=== PATIENT | female | born 1985 | race Caucasian/White ===

== ENCOUNTER 2019-01-26 13:56 | Emergency (ER) | payer SELFPAY ==
[2019-01-26] MEDS ORDERED: METOCLOPRAMIDE 10 MG/2mL INJ ONE (15:54)
[2019-01-26] MEDS ORDERED: DIPHENHYDRAMINE 50 MG/ML VIAL ONE (15:54)
[2019-01-26] MEDS ORDERED: NA CHLORIDE 0.9% 1,000 ML ONE (15:54)
[2019-01-26 16:21] LABS: Absolute Lymphocytes (CBC) 2.5 K/uL (0.7-4.9); Basophils % 0.4 % (0-1.3); Hematocrit 38.2 % (36.0-45.0); Lymphocytes % 28.2 % (15.3-44.8); MPV 9.5 fL (7.6-11.3); RBC Red Blood Cell Count 4.27 M/uL (3.86-4.86)
--- NOTE | 2019-01-26 16:42 | RAD REPORT ---
EXAM DESCRIPTION: CT - Head Brain Wo Cont - 01/26/2019 4:18 pm CLINICAL HISTORY: Head pain, head pressure, blurred vision COMPARISON: None. TECHNIQUE: Axial 5 mm thick images of the head were obtained without IV contrast. All CT scans are performed using dose optimization technique as appropriate and may include automated exposure control or mA/KV adjustment according to patient size. FINDINGS: No intracranial hemorrhage, mass, edema or shift of mid-line structures. No acute infarcti on changes seen. No abnormal extra-axial fluid collections. Ventricles are normal. Mastoid air cells and visualized portions of the paranasal sinuses are clear. No acute bony findings. IMPRESSION: Negative non-contrast CT head examination.
[2019-01-26 16:55] LABS: ALT/SGPT 13 U/L (12-78); AST/SGOT 11 U/L (15-37); Albumin 3.8 g/dL (3.4-5.0); Alkaline Phosphatase 55 U/L (45-117); BUN Blood Urea Nitrogen 14 mg/dL (7-18); Bicarbonate 27 mmol/L (21-32); Bilirubin Total 0.3 mg/dL (0.2-1.0); Glucose Level 85 mg/dL (74-106); Protein, Total 7.1 g/dL (6.4-8.2); Sodium Level 142 mmol/L (136-145)
[2019-01-26 17:07] LABS: Urine Blood TRACE (NEG); Urine Glucose NEGATIVE (NEG); Urine Protein NEGATIVE (NEG); Urine Specific Gravity 1.025 (1.005-1.030)
--- NOTE | 2019-01-26 17:40 | EDPHYS ---
Physician Documentation [facility] Name: Nancy Malhotra Age: 33 yrs Sex: Female : 1985 Arrival Date: 01/26/2019 Time: 13:58 Bed 28 Private MD: ED Physician Avelino Solorio HPI: 01/26 16:15 This 33 yrs old Female presents to ER via Ambulatory with complaints of jmm Headache, Blurred Vision. 16:15 Onset: The symptoms/episode began/occurred gradually, 2 day(s) ago. Associated signs jmm and symptoms: Pertinent positives: vomiting. Headache History: The patient has had previous headaches. The patient has experienced similar episodes in the past. This is a 33 year old female with a history of chronic headaches that presents to the ED with complaints of headache which alternates sides with multiple episodes of vomiting. Headache worse yesterday than today. Denies fever, denies neck stiffness. . 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 - Social history:: Smoking status: Patient uses tobacco products, smokes one pack cigarettes per day. - Ebola Screening: : Patient denies travel to an Ebola-affected area in the 21 days before illness onset. ROS: 16:15 Constitutional: Negative for fever, chills, and weight loss, Cardiovascular: Negative jmm for chest pain, palpitations, and edema, Respiratory: Negative for shortness of breath, cough, wheezing, and pleuritic chest pain. 16:15 Abdomen/GI: Positive for vomiting. 16:15 Neuro: Positive for headache. 16:15 All other systems are negative. Exam: 16:15 Constitutional: This is a well developed, well nourished patient who is awake, alert, jmm and in no acute distress. Head/Face: atraumatic. Eyes: EOMI, no conjunctival erythema appreciated ENT: Moist Mucus Membranes Neck: Trachea midline, Supple Chest/axilla: Normal chest wall appearance and motion. Cardiovascular: Regular rate and rhythm. No edema appreciated Respiratory: Normal respirations, no respiratory distress appreciated Abdomen/GI: Non distended, soft Back: Normal ROM Skin: General appearance color normal MS/ Extremity: Moves all extremities, no obvious deformities appreciated, no edema noted to the lower extremities Neuro: Awake and alert, normal gait Vital Signs: 14:38 BP 138 / 80; Pulse 84; Resp 18; Temp 98.5; Pulse Ox 100% on R/A; Height 5 ft. 3 in. aj1 (160.02 cm) (R); 15:31 BP 120 / 67; Pulse 61; Resp 18; Pulse Ox 100% on R/A; mg2 18:03 BP 121 / 78; Pulse 62; Resp 18; Temp 98.5; Pulse Ox 100% on R/A; Pain 0/10; mg2 MDM: 15:50 Patient medically screened. [facility] 17:36 Data reviewed: vital signs, nurses notes. Counseling: I had a detailed discussion with charles the patient and/or guardian regarding: the historical points, exam findings, and any diagnostic results supporting the discharge/admit diagnosis, lab results, radiology results, the need for outpatient follow up, to return to the emergency department if symptoms worsen or persist or if there are any questions or concerns that arise at home. ED course: Patient is alert and non toxic in appearance in the ED. GU resolved. Neck is supple, patient is afebrile. I do not suspect meningitis. GU gradual onset, I do not suspect SAH. Patient is advised to follow up with neuro and otherwise given strict return precautions. Patient understood and agrees with the plan of care. . 01/26 15:52 Order name: CBC with Diff; Complete Time: 16:26 [facility] 01/26 15:52 Order name: CMP; Complete Time: 17:06 [facility] 01/26 15:52 Order name: CT Head Brain wo Cont; Complete Time: 16:45 [facility] 01/26 16:35 Order name: Urine Dipstick--Ancillary (enter results); Complete Time: 17:11 gm 01/26 16:35 Order name: Urine --Ancillary (enter results); Complete Time: 17:11 gm 01/26 15:52 Order name: Urine Dipstick-Ancillary (obtain specimen); Complete Time: 16:16 [facility] 01/26 15:52 Order name: Urine Test (obtain specimen); Complete Time: 16:16 [facility] Administered Medications: 16:05 Drug: NS 0.9% 1000 ml Route: IV; Rate: 1 bolus; Site: right antecubital; mg2 17:46 Follow up: Response: No adverse reaction; IV Status: Completed infusion mg2 16:05 Drug: Reglan 10 mg Route: IVP; Site: right antecubital; mg2 17:45 Follow up: Response: No adverse reaction; Marked relief of symptoms mg2 16:05 Drug: diphenhydrAMINE 12.5 mg Route: IVP; Site: right antecubital; mg2 17:45 Follow up: Response: No adverse reaction; Marked relief of symptoms mg2 Disposition: 18:34 Co-signature as Attending Physician, Avelino Solorio MD. Chart complete. rn Disposition: 01/26/19 17:40 Discharged to Home. Impression: Headache. - Condition is Stable. - Discharge Instructions: General Headache Without Cause. - Medication Reconciliation Form, Thank You Letter, Antibiotic Education, Prescription Opioid Use, Work release form form. - Follow up: Felipe Aggarwal MD; When: 2 - 3 days; Reason: Recheck today's complaints, Continuance of care, Re-evaluation by your physician. Signatures: Dispatcher [employer] EDNneka Downey RN RN aj1 Valdez Monte PA PA [facility] Avelino Solorio MD MD rn Gardose, Michele, RN RN mg2 Corrections: (The following items were deleted from the chart) 18:03 17:40 01/26/2019 17:40 Discharged to Home. Impression: Headache. Condition is Stable. mg2 Forms are Medication Reconciliation Form, Thank You Letter, Antibiotic Education, Prescription Opioid Use. Follow up: Felipe Aggarwal; When: 2 - 3 days; Reason: Recheck today's complaints, Continuance of care, Re-evaluation by your physician. [facility]
--- NOTE | 2019-01-26 17:40 | ER ---
Nurse's Notes [facility] Name: Nancy Malhotra Age: 33 yrs Sex: Female : 1985 Arrival Date: 01/26/2019 Time: 13:58 Bed 28 Private MD: Diagnosis: Headache Presentation: 01/26 14:36 Presenting complaint: Patient states: "Since yesterday it feels like my head has a aj1 rubber-band around it. Sometimes it makes my vision blurry, and I'm just light-headed" Denies any recent head injury. Transition of care: patient was not received from another setting of care. Onset of symptoms was January 25, 2019. Risk Assessment: Do you want to hurt yourself or someone else? Patient reports no desire to harm self or others. Initial Sepsis Screen: Does the patient meet any 2 criteria? No. Patient's initial sepsis screen is negative. Does the patient have a suspected source of infection? No. Patient's initial sepsis screen is negative. Care prior to arrival: None. 14:36 Method Of Arrival: Ambulatory [facility] 14:36 Acuity: MORIS 4 aj1 Triage Assessment: 14:38 Headache History: Denies prior headaches. General: Appears in no apparent distress. aj1 comfortable, Behavior is calm, cooperative, appropriate for age. Pain: Complains of pain in forehead, right bahai, left bahai, left temporal area, left occipital area, right temporal area and right occipital area Pain currently is 3 out of 10 on a pain scale. Quality of pain is described as pressure, Pain began 1 day ago. Also complains of nausea, blurred vision that comes and goes. Neuro: Level of Consciousness is awake, alert, obeys commands, Oriented to person, place, time, situation, Moves all extremities. Full function Gait is steady, Speech is normal, Facial symmetry appears normal, Reports headache. Cardiovascular: Patient's skin is warm and dry. Respiratory: Airway is patent Respiratory effort is even, unlabored, Respiratory pattern is regular, symmetrical. 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 - Social history:: Smoking status: Patient uses tobacco products, smokes one pack cigarettes per day. - Ebola Screening: : Patient denies travel to an Ebola-affected area in the 21 days before illness onset. Screenin:31 Abuse screen: Denies threats or abuse. Denies injuries from another. Nutritional mg2 screening: No deficits noted. Tuberculosis screening: No symptoms or risk factors identified. Fall Risk None identified. Assessment: 15:28 General: Appears in no apparent distress. comfortable, Behavior is calm, cooperative. mg2 Pain: Complains of pain in head Pain does not radiate. Pain currently is 6 out of 10 on a pain scale. Quality of pain is described as aching, Pain began gradually. Neuro: Level of Consciousness is awake, alert, obeys commands, Oriented to person, place, time, situation, Reports headache. Neuro: Reports blurred vision. Cardiovascular: Capillary refill < 3 seconds Patient's skin is warm and dry. Respiratory: Airway is patent Respiratory effort is even, unlabored, Respiratory pattern is regular, symmetrical. GI: No signs and/or symptoms were reported involving the gastrointestinal system. GI: Reports vomiting. : No signs and/or symptoms were reported regarding the genitourinary system. EENT: No signs and/or symptoms were reported regarding the EENT system. Derm: Skin is intact, is healthy with good turgor, Skin is pink, warm \\T\\ dry. normal. Musculoskeletal: Circulation, motion, and sensation intact. Capillary refill < 3 seconds. 16:16 Reassessment: patient sent to ct scan via wheelchair. mg2 18:03 Reassessment: Patient appears in no apparent distress at this time. Patient is alert, mg2 oriented x 3, equal unlabored respirations, skin warm/dry/pink. Patient denies pain at this time. Patient states feeling better. 18:14 Reassessment: Patient appears in no apparent distress at this time. Patient states mg2 feeling better. Vital Signs: 14:38 BP 138 / 80; Pulse 84; Resp 18; Temp 98.5; Pulse Ox 100% on R/A; Height 5 ft. 3 in. aj1 (160.02 cm) (R); 15:31 BP 120 / 67; Pulse 61; Resp 18; Pulse Ox 100% on R/A; mg2 18:03 BP 121 / 78; Pulse 62; Resp 18; Temp 98.5; Pulse Ox 100% on R/A; Pain 0/10; mg2 ED Course: 13:58 Patient arrived in ED. as 14:37 Triage completed. aj1 14:38 Arm band placed on Patient placed in waiting room, Patient notified of wait time. aj1 15:09 Elfego Maya RN is Primary Nurse. mg2 15:21 Valdez Monte PA is PHCP. jmm 15:21 Avelino Solorio MD is Attending Physician. jmm 15:31 Patient has correct armband on for positive identification. Pulse ox on. NIBP on. mg2 15:31 No provider procedures requiring assistance completed. mg2 16:05 Inserted saline lock: 20 gauge in right antecubital area, using aseptic technique. mg2 Blood collected. 16:18 CT Head Brain wo Cont In Process Unspecified. EDMS 16:18 CT completed. Patient tolerated procedure well. Patient moved back from CT. mw3 17:40 Felipe Aggarwal MD is Referral Physician. m 18:03 IV discontinued, intact, bleeding controlled, No redness/swelling at site. Pressure mg2 dressing applied. Administered Medications: 16:05 Drug: NS 0.9% 1000 ml Route: IV; Rate: 1 bolus; Site: right antecubital; mg2 17:46 Follow up: Response: No adverse reaction; IV Status: Completed infusion mg2 16:05 Drug: Reglan 10 mg Route: IVP; Site: right antecubital; mg2 17:45 Follow up: Response: No adverse reaction; Marked relief of symptoms mg2 16:05 Drug: diphenhydrAMINE 12.5 mg Route: IVP; Site: right antecubital; mg2 17:45 Follow up: Response: No adverse reaction; Marked relief of symptoms mg2 Outcome: 17:40 Discharge ordered by . [facility] 18:03 Discharged to home ambulatory. mg2 18:03 Condition: good 18:03 Discharge instructions given to patient, Instructed on discharge instructions, follow up and referral plans. Demonstrated understanding of instructions, follow-up care. 18:03 Patient left the ED. mg2 Signatures: Dispatcher [employer] EDMS Nneka Felton RN RN aj1 Valdez Monte PA PA jmNubia Solomon as Elfego Maya, RN RN mg2 Betsy Summers mw3 Corrections: (The following items were deleted from the chart) 18:15 18:14 BP 109 / 71; Pulse 65bpm; Resp 18bpm; Pulse Ox 100% RA; Temp 98.2F; Pain 0/10; mg2mg2
[2019-01-26 18:42] VITALS: TEMP 98.5; O2SAT 100
[2019-01-26 18:44] VITALS: BP 121/78
== END 2019-01-26 18:03 | disposition home or self-care (01) ==
LOC: ER 13:56
DX: R51 Headache (principal)
CPT/HCPCS: 36415; 70450; 80053; 81003; 81025; 85025; 96361; 96374; 96375; 99284; J1200; J2765; J7030

== ENCOUNTER 2022-01-10 14:21 | Emergency (ER) | payer OTHER, SELFPAY ==
--- OUTSIDE RECORDS SUMMARY | 2022-01-10 14:24 | XMS REPORT | Continuity of Care Document ---
:1985 Author Organization [facility] t Address [address] [place] [address] [address]. [address] [place] [address] Care Team Providers Name Role Phone LELO HELMS Attending Clinician Unavailable Tessa Weinstein MD Attending Clinician TESSA WEINSTEIN Attending Clinician Unavailable Doctor Unassigned, [place] Attending Clinician Unavailable Lelo Helms PA-C Attending Clinician 2, [facility] Attending Clinician Unavailable Payers Payer Name Policy Type Policy Number Effective Date Expiration Date S ource Problems Condition Condition Condition Status Onset Resolution Last Treating Co mments Source Name Details Category Date Date Treatment Clinician Date Obesity Obesity Disease Active Univers (BMI (BMI 7-07 ity of 30-39.9) 30-39.9) 00:00: [place] 00 [facility] No known No known Disease Unive rs active active ity of problems problems [facility] Allergies, Adverse Reactions, Alerts Allergy Allergy Status Severity Reaction(s) Onset Inactive Treating Comm ents Source Name Type Date Date Clinician NO KNOWN Drug Active Univers ALLERGIE Class ity of S [facility] Social History Social Habit Start Date Stop Date Quantity Comments Source Exposure to Not sure [facility] SARS-CoV-2 (event) [facility] Tobacco use and 2020-11-24 2020-11-24 Never used Universit y of exposure 00:00:00 00:00:00 [facility] Alcohol intake 2020-11-24 2020-11-24 Lifetime University of 00:00:00 00:00:00 non-drinker [facility] (finding) Branch Cigarettes smoked 2020-11-24 2020-11-24 Univers ity of current (pack per 00:00:00 00:00:00 ) - Reported Branch Tobacco Comment 2020-10-13 2020-10-13 1 PPD Universit y of 00:00:00 00:00:00 [facility] Sex Ass[birth year] At [birth year] Universit y of 00:00:00 00:00:00 [facility] Smoking Status Start Date Stop Date Source Unknown if ever smoked [facility] Current every day smoker 2020-11-24 00:00:00 Uni versity of [facility] Medications Ordered Filled Start Stop Current Ordering Indication Dosage Frequency Signature Comments Components Source Medication Medication Date Date Medication? Clinician (SIG) Name Name levonorgest Yes 1{devic 1 Device Univers reL 8-04 e} by ity of (MIRENA) 20 16:32: Intrauteri [place] mcg/24 34 ne route Medical hours (6 once now. Branch yrs) 52 mg IUD levonorgest Yes 1{devic 1 Device Univers reL 8-04 e} by ity of (MIRENA) 20 16:32: Intrauteri [place] mcg/24 34 ne route Medical hours (6 once now. Branch yrs) 52 mg IUD levonorgest 2020- No [id number] 1{devic Univers reL 7 07-07 e} ity of (MIRENA) 17:45: 16:38 [place] IUD 1 00 :00 [employer] Branch levonorgest 2020- No [id number] 1{devic 1 Device, Univers reL 7 07-07 e} Intrauteri ity of (MIRENA) 17:45: 16:38 ne, ONCE, Alex as IUD 1 00 :00 1 dose, [employer] Sun10/27/20 Branch at 1245, Routine levonorgest 2020- No [id number] 1{devic Univers reL 707 07-07 e} ity of (MIRENA) 17:45: 16:38 [place] IUD 1 00 :00 [employer] Branch levonorgest 2020- No [id number] 1{devic 1 Device, Univers reL 7 07-07 e} Intrauteri ity of (MIRENA) 17:45: 16:38 ne, ONCE, Alex as IUD 1 00 :00 1 dose, [employer] Sun10/27/20 Branch at 1245, Routine miSOPROStoL Yes [id number] Take one Univers 200 mcg 6-23 tablet ity of tablet 00:00: night [place] 00 before Medical procedure, Branch then take one tablet morning of procedure miSOPROStoL 2020-0 Yes [id number] Take one Univers 200 mcg 6-23 tablet ity of tablet 00:00: night [place] 00 before Medical procedure, Branch then take one tablet morning of procedure miSOPROStoL 2020-0 Yes [id number] Take one Univers 200 mcg 6-23 tablet ity of tablet 00:00: night [place] 00 before Medical procedure, Branch then take one tablet morning of procedure miSOPROStoL 2020-0 2021- No [id number] Take one Univers 200 mcg 6-23 07-07 tablet ity of tablet 00:00: 00:00 night [place] 00 :00 before Medical procedure, Branch then take one tablet morning of procedure miSOPROStoL 2020-0 2020- No [id number] Take one Univers 200 mcg 6-23 07-07 tablet ity of tablet 00:00: 00:00 night [place] 00 :00 before Medical procedure, Branch then take one tablet morning of procedure ferrous 2020-0 Yes Take by Univers sulfate 6-08 mouth. ity of (IRON ORAL) 19:47: [address] ferrous 2020-0 Yes Take by Univers sulfate 6-08 mouth. ity of (IRON ORAL) 19:47: [address] ferrous 2020-0 Yes Take by Univers sulfate 6-08 mouth. ity of (IRON ORAL) 19:47: [address] ferrous 2020-0 Yes Take by Univers sulfate 6-08 mouth. ity of (IRON ORAL) 19:47: [address] ferrous 2020-0 Yes Take by Univers sulfate 6-08 mouth. ity of (IRON ORAL) 19:47: [address] ferrous 2020-0 Yes Take by Univers sulfate 6-08 mouth. ity of (IRON ORAL) 19:47: [address] ferrous 2020-0 Yes Take by Univers sulfate 6-08 mouth. ity of (IRON ORAL) 19:47: [address] ferrous 2020-0 Yes Take by Univers sulfate 6-08 mouth. ity of (IRON ORAL) 19:47: [address] ferrous 2020-0 Yes Take by Univers sulfate 6-08 mouth. ity of (IRON ORAL) 19:47: [place] 48 Medical Branch ferrous 2021-0 Yes Take by Univers sulfate 6-08 mouth. ity of (IRON ORAL) 19:47: [place] [address] Medical Branch ferrous 2021-0 Yes Take by Univers sulfate 6-08 mouth. ity of (IRON ORAL) 19:47: [place] [address] Medical Branch ferrous 2021-0 Yes Take by Univers sulfate 6-08 mouth. ity of (IRON ORAL) 19:47: [place] [address] Medical Branch metFORMIN 202-0 Yes [id number] 500mg Take 1 U nivers 500 mg 6-08 tablet by ity of tablet 00:00: mouth [place] (two) Medical times Branch daily with meals. metFORMIN 2020-0 Yes [id number] 500mg Take 1 U nivers 500 mg 6-08 tablet by ity of tablet 00:00: mouth [place] (two) Medical times Branch daily with meals. metFORMIN 2020-0 Yes [id number] 500mg Take 1 U nivers 500 mg 6-08 tablet by ity of tablet 00:00: mouth [place] (two) Medical times Branch daily with meals. metFORMIN 2020-0 Yes [id number] 500mg Take 1 U nivers 500 mg 6-08 tablet by ity of tablet 00:00: mouth [place] (two) Medical times Branch daily with meals. metFORMIN 2020-0 Yes [id number] 500mg Take 1 U nivers 500 mg 6-08 tablet by ity of tablet 00:00: mouth [place] (two) Medical times Branch daily with meals. metFORMIN 2020-0 Yes [id number] 500mg Take 1 U nivers 500 mg 6-08 tablet by ity of tablet 00:00: mouth [place] (two) Medical times Branch daily with meals. metFORMIN 2020-0 Yes [id number] 500mg Take 1 U nivers 500 mg 6-08 tablet by ity of tablet 00:00: mouth [place] (two) Medical times Branch daily with meals. metFORMIN 202-0 Yes [id number] 500mg Take 1 U nivers 500 mg 6-08 tablet by ity of tablet 00:00: mouth [place] (two) Medical times Branch daily with meals. metFORMIN 1-0 Yes [id number] 500mg Take 1 U nivers 500 mg 6-08 tablet by ity of tablet 00:00: mouth [place] (two) Medical times Branch daily with meals. metFORMIN Yes [id number] 500mg Take 1 U nivers 500 mg 6-08 tablet by ity of tablet 00:00: mouth 2 [place] 00 (two) Medical times Branch daily with meals. metFORMIN 0 Yes [id number] 500mg Take 1 U nivers 500 mg 6-08 tablet by ity of tablet 00:00: mouth 2 [place] 00 (two) Medical times Branch daily with meals. metFORMIN 0 Yes [id number] 500mg Take 1 U nivers 500 mg 6-08 tablet by ity of tablet 00:00: mouth 2 [place] 00 (two) Medical times Branch daily with meals. Vital Signs Vital Name Observation Time Observation Value Comments Source Systolic blood 2020-11-24 16:30:00 123 mm[Hg] Univer sity of [facility] Diastolic blood 2020-11-24 16:30:00 79 mm[Hg] [facility] Heart rate 2020-11-24 16:30:00 79 /min [facility] Body temperature 2020-11-24 16:30:00 36.83 Mariela [facility] Respiratory rate 2020-11-24 16:30:00 16 /min [facility] Body height 2020-11-24 16:30:00 160 cm [facility] Body weight 2020-11-24 16:30:00 77.474 kg [facility] BMI 2020-11-24 16:30:00 30.26 kg/m2 [facility] Systolic blood 2020-10-27 15:18:00 127 mm[Hg] Univer sity of [facility] Diastolic blood 2020-10-27 15:18:00 79 mm[Hg] [facility] Heart rate 2020-10-27 15:18:00 63 /min [facility] Body temperature 2020-10-27 15:18:00 36.72 Mariela [facility] Respiratory rate 2020-10-27 15:18:00 18 /min [facility] Body height 2020-10-27 15:18:00 160 cm [facility] Body weight 2020-10-27 15:18:00 77.111 kg Universi ty of [place] [facility] BMI 2020-10-27 15:18:00 30.11 kg/m2 Universi ty of [place] [facility] Systolic blood 2020-10-13 15:02:00 128 mm[Hg] Univer sity of pressure [place] [facility] Diastolic blood 2020-10-13 15:02:00 80 mm[Hg] Unive rsity of pressure [facility] Heart rate 2020-10-13 15:02:00 85 /min Universi ty of [facility] Body temperature 2020-10-13 15:02:00 37.06 Mariela Univ ersity of [facility] Branch Respiratory rate 2020-10-13 15:02:00 18 /min Univ ersity of [facility] Branch Body height 2020-10-13 15:02:00 160 cm Universi ty of [place] [facility] [place] Body weight 2020-10-13 15:02:00 76.658 kg Universi ty of [facility] Branch BMI 2020-10-13 15:02:00 29.94 kg/m2 Universi ty of [place] [facility] Systolic blood 2020-09-28 19:46:00 111 mm[Hg] Univer sity of pressure [facility] Branch Diastolic blood 2020-09-28 19:46:00 79 mm[Hg] Unive rsity of pressure [facility] Branch Heart rate 2020-09-28 19:46:00 77 /min Universi ty of [place] [facility] [place] Body temperature 2020-09-28 19:46:00 36.89 Mariela Univ ersity of [facility] Branch Respiratory rate 2020-09-28 19:46:00 18 /min Univ ersity of [place] [facility] Body height 2020-09-28 19:46:00 160 cm Universi ty [facility] [place] [facility] Body weight 2020-09-28 19:46:00 76.658 kg Universi ty of [place] [facility] BMI 2020-09-28 19:46:00 29.94 kg/m2 [facility]i ty [facility] [place] [facility] Procedures Procedure Date / Time Performed Performing Clinician [facility] 2020-10-27 05:01:00 Doctor Unassigned, No Univer [facility] ULTRASOUND Name [facility] POCT TEST 2020-10-27 00:00:00 Tessa Weinstein Universi ty of [facility] ASSIGNMENT OF BENEFITS 2020-09-28 19:12:27 Doctor Unassigned, No [facility] POCT TEST 2020-09-28 00:00:00 Lelo Helms ty of [facility] Encounters Start End Encounter Admission Attending Care Care Encounter Source Date/Time Date/Time Type Type Clinicians Facility Department ID 2021-10-17 2021-10-17 Outpatient R ANALIA [facility] [id number] Univers 08:00:00 08:00:00 LELO [id number] [facility] [place] 2020-12-29 2020-12-29 Outpatient R ANALIA [facility] [id number] Univers 13:00:00 13:00:00 LELO [id number] [facility] [place] 2020-11-24 2020-11-24 Office Surya [facility] [id number] Univers 11:00:44 11:44:47 Visit Harley Yao [id number] i ty [id number] [phone] Ri [address] 2020-11-24 2020-11-24 Outpatient Jenaro WEINSTEIN [facility] [id number] Univers 11:00:00 11:00:00 [id number] [facility] [place] 2020-11-24 2020-11-24 Outpatient Jenaro WEINSTEIN T[facility] [id number] Univers 11:00:00 11:00:00 [facility] [place] 2020-10-27 2020-10-27 Office Surya [facility] [id number] Univers 10:05:10 11:26:32 Visit Harley Yao [id number] i ty [id number] [phone] Ri dic[address] 2020-10-27 2020-10-27 Outpatient Jenaro WEINSTEIN [facility] [id number] Univers 10:00:00 10:00:00 [id number] [facility] [place] 2020-10-27 2020-10-27 Outpatient Jenaro WEINSTEIN [facility] [id number] Univers 10:00:00 10:00:00 ity of [facility] 2020-10-27 2020-10-27 Orders Doctor JOSSIE [id number] Univers 00:00:00 00:00:00 Only Unassigned, MARIBELL [id number] ity of [place] [facility] [id number] Alex as [phone] [address] 2020-10-13 2020-10-13 Office Analia [facility] [id number] Univers 09:33:14 11:00:48 Visit Lelo Yao [id number] i [id number] [phone] [facility] 134 [facility] 2020-10-13 2020-10-13 [facility] [id number] Univers 09:45:00 09:45:00 LELO [id number] ity [facility] 2020-10-13 2020-10-13 Outpatient R ANALIA [facility] [id number] Univers 09:45:00 09:45:00 LELO [facility] [place] 2020-10-07 2020-10-07 Telephone Analia [facility] [id number] Univers 00:00:00 00:00:00 Lelo Yao [id number] [id number] [phone] Ri dical [facility] 134 [facility] 2020-09-28 2020-09-28 Bear Keeper 2, Adc Lab [facility] [id number] Univers 15:33:19 15:48:19 Visit Lelo Helms [id number] ity [id number] [phone] Ri dical nal 353 [facility] 2020-09-28 2020-09-28 Outpatient R [facility] [id number] Univers 15:45:00 15:45:00 [id number] [facility] 2020-09-28 2020-09-28 [facility] [id number] Univers 14:17:04 15:22:17 Visit Lelo Yao [id number] i ty [id number] [phone] Ri dical [address] 2020-09-28 2020-09-28 [facility] [id number] [facility] 14:30:00 14:30:00 LELO [facility] [place] 2020-09-28 2020-09-28 Orders Doctor JOSSIE [id number] Univers 00:00:00 00:00:00 Only Unassigned, MARIBELL [id number] ity of [place] [facility] [id number] Alex as [phone] [address] Results Test Description Test Time Test Comments Results Result Comments Source POCT TEST 2020-10-27 15:56:00 Test Item Value Reference Range Interpretation Comme nts POCT PREG (test code = 1605) Negative On board controls acceptable with C Line (test code = 3574) Yes POCT PREG LOT # (test code = 3575) POCT PREG TEST DATE (test code = 3576[id number] 15:56:00 Test Item Value Reference Range Interpretation Comments POCT PREG (test code = 1605) Negative On board controls acceptable with C Yes Line (test code = 3574) POCT PREG LOT # (test code = 3575) POCT PREG TEST DATE (test code = 3576) [id number] 20:04:00 Test Item Value Reference Range Interpretation Comments POCT PREG (test code = 1605) Negative On board controls acceptable with C Yes Line (test code = 3574) POCT PREG LOT # (test code = 3575) POCT PREG TEST DATE (test code = 3576) [facility] [id number] 20:04:00 Test Item Value Reference Range Interpretation Comments POCT PREG (test code = 1605) Negative On board controls acceptable with C Yes Line (test code = 3574) POCT PREG LOT # (test code = 3575) POCT PREG TEST DATE (test code = 3576) [facility]
--- NOTE | 2022-01-10 17:00 | ER ---
Nurse's Notes [facility] Name: Nancy Malhotra Age: 36 yrs Sex: Female : 1985 Arrival Date: 01/10/2022 Time: 14:22 Bed Waiting Private MD: Diagnosis: Presentation: 01/10 14:35 Chief complaint: Patient states: feels like my right arm is asleep but no pins and jh5 needles, I can't feel my finger tips. Started 3 weeks ago, has not seen a provider at all for it. "Numbness comes and goes, and then I get a sharp pain down my arm". Coronavirus screen: Vaccine status: Patient reports receiving the 2nd dose of the covid vaccine. Client denies travel out of the [place] in the last 14 days. Ebola Screen: Patient negative for fever greater than or equal to 101.5 degrees Fahrenheit, and additional compatible Ebola Virus Disease symptoms Patient denies exposure to infectious person. Patient denies travel to an Ebola-affected area in the 21 days before illness onset. Initial Sepsis Screen: Does the patient meet any 2 criteria? No. Patient's initial sepsis screen is negative. Does the patient have a suspected source of infection? No. Patient's initial sepsis screen is negative. Risk Assessment: Do you want to hurt yourself or someone else? Patient reports no desire to harm self or others. Onset of symptoms was September 2021. 14:35 Method Of Arrival: Ambulatory [facility] 14:35 Acuity: MORIS 3 jh5 Triage Assessment: 14:38 General: Appears in no apparent distress. well groomed, well developed, well nourished, [facility] Behavior is calm, cooperative, appropriate for age. Pain: Denies pain. 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 - Social history:: Smoking status: Patient reports the use of cigarette tobacco products, smokes one pack cigarettes per day. Assessment: 16:30 Reassessment: Called to exam room, no answer. Unable to locate patient. 16:40 Reassessment: Called patient from lobby to exam room. No answer. Unable to locate ss patient. 16:58 Reassessment: Called patient again from ER lobby. No answer. Unable to locate patient. Vital Signs: 14:35 BP 130 / 84; Pulse 77; Resp 18; Temp 98.6; Pulse Ox 100% ; Weight 77.11 kg; Height 5 5 ft. 3 in. (160.02 cm); Pain 0/10; 14:35 Body Mass Index 30.11 (77.11 kg, 160.02 cm) 5 ED Course: 14:22 Patient arrived in ED. am2 14:38 Triage completed. [facility] 14:38 Arm band placed on right wrist. [facility] 16:51 Em Lyman MD is Attending Physician. sd2 Administered Medications: No medications were administered Outcome: 17:00 Eloped from waiting room. 17:00 unknown 17:00 Patient left the ED. Signatures: Yulisa Bright RN RN Rosalee Sexton am2 Celine Wilkinson RN RN [facility] Em Lyman MD MD sd2
[2022-01-11 19:35] VITALS: BP 130/84; TEMP 98.6; O2SAT 100
== END 2022-01-10 17:00 | disposition left against medical advice (07) ==
LOC: ER 14:21
DX: Z02.9 Encounter for administrative examinations, unspecified (principal)
CPT/HCPCS: 99281

== ENCOUNTER 2022-03-30 08:50 | Emergency (ER) | payer SELFPAY ==
--- OUTSIDE RECORDS SUMMARY | 2022-03-30 08:56 | XMS REPORT | Continuity of Care Document ---
:1985 Author Organization [facility] t Address [address] [place] [address] [address] [place] [address] Care Team Providers Name Role Phone Tessa Weinstein MD Attending Clinician TESSA WEINSTEIN Attending Clinician Unavailable Doctor Unassigned, [place] Attending Clinician Unavailable Lelo Helms PA-C Attending Clinician LELO HELMS Attending Clinician Unavailable 2, [facility] Attending Clinician Unavailable Payers Payer Name Policy Type Policy Number Effective Date Expiration Date S ource Problems Condition Condition Condition Status Onset Resolution Last Treating Co mments Source Name Details Category Date Date Treatment Clinician Date Obesity Obesity Disease Active Univers (BMI (BMI 7-07 ity of 30-39.9) 30-39.9) 00:00: [place] 00 [facility] No known No known Disease Unive rs active active ity of problems problems [facility] Allergies, Adverse Reactions, Alerts Allergy Allergy Status Severity Reaction(s) Onset Inactive Treating Comm ents Source Name Type Date Date Clinician NO KNOWN Drug Active Univers ALLERGIE Class ity of S [facility] Social History Social Habit Start Date Stop Date Quantity Comments Source Exposure to Not sure [facility] SARS-CoV-2 (event) [facility] Tobacco use and 2020-11-24 2020-11-24 Never used Universit y of exposure 00:00:00 00:00:00 [facility] Alcohol intake 2020-11-24 2020-11-24 Lifetime University of 00:00:00 00:00:00 non-drinker [facility] [place] (finding) Branch Cigarettes smoked 2020-11-24 2020-11-24 Univers ity of current (pack per 00:00:00 00:00:00 ) - Reported Branch Tobacco Comment 2020-10-13 2020-10-13 1 PPD Universit y of 00:00:00 00:00:00 [facility] Sex Ass[birth year] At [birth year] Universit y of 00:00:00 00:00:00 [facility] Smoking Status Start Date Stop Date Source Unknown if ever smoked [facility] Current every day smoker 2020-11-24 00:00:00 Uni versity of [facility] Medications Ordered Filled Start Stop Current Ordering [...] yrs) 52 mg IUD levonorgest 2020- No [id number] 1{devic Univers reL 7 07-07 e} ity of (MIRENA) 17:45: 16:38 [place] IUD 1 00 :00 [employer] Branch levonorgest 2020- No [id number] 1{devic 1 Device, Univers reL 7 07-07 e} Intrauteri ity of (MIRENA) 17:45: 16:38 ne, ONCE, Alex as IUD 1 00 :00 1 dose, [employer] Tender Sun10/27/20 Branch at 1245, Routine levonorgest 2020- No [id number] 1{devic Univers reL 707 07-07 e} ity of (MIRENA) 17:45: 16:38 [place] IUD 1 00 :00 [employer] Branch levonorgest 2020- No [id number] 1{devic 1 Device, Univers reL 7 07-07 e} Intrauteri ity of (MIRENA) 17:45: 16:38 ne, ONCE, Alex as IUD 1 00 :00 1 dose, Novel[employer] Tender Sun10/27/20 Branch at 1245, Routine miSOPROStoL Yes [id number] Take one Univers 200 mcg 6-23 tablet ity of tablet 00:00: night [place] 00 before Medical procedure, Branch then take one tablet morning of procedure miSOPROStoL 2020-0 Yes [id number] Take one Univers 200 mcg 6-23 tablet ity of tablet 00:00: night [place] 00 before Medical procedure, Branch then take one tablet morning of procedure miSOPROStoL 2020-0 Yes [id number] Take one Univers 200 mcg 6-23 tablet ity of tablet 00:00: night [place] 00 before Medical procedure, Branch then take one tablet morning of procedure miSOPROStoL 2020-0 2021- No [id number] Take one Univers 200 mcg 6-23 07-07 tablet ity of tablet 00:00: 00:00 night [place] 00 :00 before Medical procedure, Branch then take one tablet morning of procedure miSOPROStoL 2020-0 2020- No [id number] Take one Univers 200 mcg 6-23 07-07 tablet ity of tablet 00:00: 00:00 night [place] 00 :00 before Medical procedure, Branch then take one tablet morning of procedure ferrous 2020-0 Yes Take by Univers sulfate 6-08 mouth. ity of (IRON ORAL) 19:47: [address] ferrous 2020-0 Yes Take by Univers sulfate 6-08 mouth. ity of (IRON ORAL) 19:47: [address] ferrous 2020-0 Yes Take by Univers sulfate 6-08 mouth. ity of (IRON ORAL) 19:47: [address] ferrous 2020-0 Yes Take by Univers sulfate 6-08 mouth. ity of (IRON ORAL) 19:47: [address] ferrous 2020-0 Yes Take by Univers sulfate 6-08 mouth. ity of (IRON ORAL) 19:47: [address] ferrous 2020-0 Yes Take by Univers sulfate 6-08 mouth. ity of (IRON ORAL) 19:47: [address] ferrous 2020-0 Yes Take by Univers sulfate 6-08 mouth. ity of (IRON ORAL) 19:47: [address] ferrous 2020-0 Yes Take by Univers sulfate 6-08 mouth. ity of (IRON ORAL) 19:47: [address] ferrous 2020-0 Yes Take by Univers sulfate 6-08 mouth. ity of (IRON ORAL) 19:47: [place] 48 [facility] ferrous 2021-0 Yes Take by Univers sulfate 6-08 mouth. ity of (IRON ORAL) 19:47: [place] [address] Medical Branch ferrous 2021-0 Yes Take by Univers sulfate 6-08 mouth. ity of (IRON ORAL) 19:47: [place] [address] Medical Branch ferrous 2021-0 Yes Take by Univers sulfate 6-08 mouth. ity of (IRON ORAL) 19:47: [place] [address] Medical Branch metFORMIN 202-0 Yes [id number] 500mg Take 1 U nivers 500 mg 6-08 tablet by ity of tablet 00:00: mouth [place] (two) Medical times Branch daily with meals. metFORMIN 2020-0 Yes [id number] 500mg Take 1 U nivers 500 mg 6-08 tablet by ity of tablet 00:00: mouth [place] (two) Medical times Branch daily with meals. metFORMIN 2020-0 Yes [id number] 500mg Take 1 U nivers 500 mg 6-08 tablet by ity of tablet 00:00: mouth [place] (two) Medical times Branch daily with meals. metFORMIN 2020-0 Yes [id number] 500mg Take 1 U nivers 500 mg 6-08 tablet by ity of tablet 00:00: mouth [place] (two) Medical times Branch daily with meals. metFORMIN 2020-0 Yes [id number] 500mg Take 1 U nivers 500 mg 6-08 tablet by ity of tablet 00:00: mouth [place] (two) Medical times Branch daily with meals. metFORMIN 2020-0 Yes [id number] 500mg Take 1 U nivers 500 mg 6-08 tablet by ity of tablet 00:00: mouth [place] (two) Medical times Branch daily with meals. metFORMIN 2020-0 Yes [id number] 500mg Take 1 U nivers 500 mg 6-08 tablet by ity of tablet 00:00: mouth [place] (two) Medical times Branch daily with meals. metFORMIN 202-0 Yes [id number] 500mg Take 1 U nivers 500 mg 6-08 tablet by ity of tablet 00:00: mouth [place] (two) Medical times Branch daily with meals. metFORMIN 1-0 Yes [id number] 500mg Take 1 U nivers 500 mg 6-08 tablet by ity of tablet 00:00: mouth [place] (two) Medical times Branch daily with meals. metFORMIN Yes [id number] 500mg Take 1 U nivers 500 mg 6-08 tablet by ity of tablet 00:00: mouth 2 [place] 00 (two) Medical times Branch daily with meals. metFORMIN 0 Yes [id number] 500mg Take 1 U nivers 500 mg 6-08 tablet by ity of tablet 00:00: mouth 2 [place] 00 (two) Medical times Branch daily with meals. metFORMIN 0 Yes [id number] 500mg Take 1 U nivers 500 mg 6-08 tablet by ity of tablet 00:00: mouth 2 [place] 00 (two) Medical times Branch daily with meals. Vital Signs Vital Name Observation Time Observation Value Comments Source Systolic blood 2020-11-24 16:30:00 123 mm[Hg] Univer sity of [facility] Diastolic blood 2020-11-24 16:30:00 79 mm[Hg] [facility] Heart rate 2020-11-24 16:30:00 79 /min [facility] Body temperature 2020-11-24 16:30:00 36.83 Mariela [facility] Respiratory rate 2020-11-24 16:30:00 16 /min [facility] Body height 2020-11-24 16:30:[address] [facility] Body weight 2020-11-24 16:30:[address] [facility] BMI 2020-11-24 16:30:00 30.26 kg/m2 [facility] Systolic blood 2020-10-27 15:18:00 127 mm[Hg] Univer sity of [facility] Diastolic blood 2020-10-27 15:18:00 79 mm[Hg] [facility] Heart rate 2020-10-27 15:18:00 63 /min [facility] Body temperature 2020-10-27 15:18:00 36.72 Mariela [facility] Respiratory rate 2020-10-27 15:18:00 18 /min [facility] Body height 2020-10-27 15:18:[address] [facility] Body weight 2020-10-27 15:18:00 77.111 kg Universi ty of [place] [facility] BMI 2020-10-27 15:18:00 30.11 kg/m2 Universi ty of [place] [facility] Systolic blood 2020-10-13 15:02:00 128 mm[Hg] Univer sity of pressure [place] [facility] Diastolic blood 2020-10-13 15:02:00 80 mm[Hg] Unive rsity of pressure [facility] [place] [facility] Heart rate 2020-10-13 15:02:00 85 /min Universi ty of [facility] [place] [facility] Body temperature 2020-10-13 15:02:00 37.06 Mariela Univ ersity of [facility] [place] [facility] Respiratory rate 2020-10-13 15:02:00 18 /min Univ ersity of [facility] [place] [facility] Body height 2020-10-13 15:02:00 160 cm [facility]i ty [facility] [place] [facility] [place] Body weight 2020-10-13 15:02:00 76.658 kg Universi ty of [facility] [place] [facility] BMI 2020-10-13 15:02:00 29.94 kg/m2 Universi ty of [place] [facility] Systolic blood 2020-09-28 19:46:00 111 mm[Hg] Univer sity of pressure [facility] [place] [facility] Diastolic blood 2020-09-28 19:46:00 79 mm[Hg] Unive rsity of pressure [facility] [place] [facility] Heart rate 2020-09-28 19:46:00 77 /min Universi ty [facility] [place] [facility] [place] Body temperature 2020-09-28 19:46:00 36.89 Mariela Univ ersity of [facility] [place] [facility] Respiratory rate 2020-09-28 19:46:00 18 /min Univ ersity of [place] [facility] Body height 2020-09-28 19:46:00 160 cm Universi ty [facility] [place] [facility] Body weight 2020-09-28 19:46:00 76.658 kg [facility]i ty [facility] [place] [facility] BMI 2020-09-28 19:46:00 29.94 kg/m2 [facility] [place] [facility] Procedures Procedure Date / Time Performed Performing Clinician [facility] e [facility] 2020-10-27 05:01:00 Doctor Unassigned, No Univer [facility] ULTRASOUND Name [facility] POCT TEST 2020-10-27 00:00:00 Tessa Weinstein Universi ty of [facility] ASSIGNMENT OF BENEFITS 2020-09-28 19:12:27 Doctor Poojassigned, No [facility] POCT TEST 2020-09-28 00:00:00 Lelo Helms ty of [facility] Encounters Start End Encounter Admission Attending Care Care Encounter Source Date/Time Date/Time Type Type Clinicians Facility Department ID 2020-11-24 2020-11-24 Office Tessa Weinstein [facility] [id number] Univers 11:00:44 11:44:47 Visit Harley Yao [id number] [id number] [phone] [place] dical [place]al [address] [place] [address] 2020-11-24 2020-11-24 Outpatient TESSA AVELAR [facility] [id number] Univers 11:00:00 11:00:00 ity of [facility] 2020-10-27 2020-10-27 Office Tessa Weinstein [facility] [id number] Univers 10:05:10 11:26:32 Visit Harley Yao [id number] [id number] [phone] [place] dical [place]al [address] [place] [address] 2020-10-27 2020-10-27 Outpatient R TESSA WEINSTEIN [facility] [id number] Univers 10:00:00 10:00:00 ity of [facility] 2020-10-27 2020-10-27 Orders Doctor SETHI [id number] Univers 00:00:00 00:00:00 Only Unassigned, MARIBELL [id number] [facility] [id number] Alex as [phone] [address] 2020-10-13 2020-10-13 Office Analia DEASHLEY [id number] Univers 09:33:14 11:00:48 Visit Lelo Yao [id number] [id number] [phone] [place] dical [place]al [address] [place] [address] 2020-10-13 2020-10-13 Outpatient R ANALIA [facility] [id number] Univers 09:45:00 09:45:00 LELO elena [facility] 2020-10-07 2020-10-07 Telephone Analia [facility] [id number] [facility] 00:00:00 00:00:00 Lelo Yao [id number] [id number] [phone] [facility] 134 [facility] 2020-09-28 2020-09-28 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, [facility] [id number] Univers 15:33:19 15:48:19 Visit Lelo Helms [id number] [id number] [phone] [facility] 353 [facility] 2020-09-28 2020-09-28 Office Analia [facility] [id number] [facility] 14:17:04 15:22:17 Visit Lelo Yao [id number] [id number] [phone] [address] 2020-09-28 2020-09-28 Outpatient R ANALIA [facility] [id number] Univers 14:30:00 14:30:00 LEOL parker [facility] 2020-09-28 2020-09-28 Orders Doctor JOSSIE [id number] [place] [address] 00:00:00 00:00:00 Only Unassigned, MARIBELL [id number] ity of [place] [facility] [id number] Alex as [phone] [address] Results Test Description Test Time Test Comments Results Result Comments Source POCT TEST 2020-10-27 15:56:00 Test Item Value Reference Range Interpretation Comme nts POCT PREG (test code = 1605) Negative On board controls acceptable with C Line (test code = 3574) Yes POCT PREG LOT # (test code = 3575) POCT PREG TEST DATE (test code = 3576) [id number] 15:56:00 Test Item Value Reference Range Interpretation Comments POCT PREG (test code = 1605) Negative On board controls acceptable with C Yes Line (test code = 3574) POCT PREG LOT # (test code = 3575) POCT PREG TEST DATE (test code = 3576) [id number] 20:04:00 Test Item Value Reference Range Interpretation Comments POCT PREG (test code = 1605) Negative On board controls acceptable with C Yes Line (test code = 3574) POCT PREG LOT # (test code = 3575) POCT PREG TEST DATE (test code = 3576) [facility] [id number] 20:04:00 Test Item Value Reference Range Interpretation Comments POCT PREG (test code = 1605) Negative On board controls acceptable with C Yes Line (test code = 3574) POCT PREG LOT # (test code = 3575) POCT PREG TEST DATE (test code = 3576) [facility]
--- NOTE | 2022-03-30 10:17 | EDPHYS ---
Physician Documentation [facility] Name: Nancy Malhotra Age: 36 yrs Sex: Female : 1985 Arrival Date: 03/30/2022 Time: 08:54 Bed 9 Private MD: ED Physician Avelino Solorio HPI: 03/30 10:15 This 36 yrs old Female presents to ER via Ambulatory with complaints of Headache, Sore snw Throat. 10:15 The patient or guardian reports flu symptoms, low-grade fever, myalgias, no appetite. snw Onset: The symptoms/episode began/occurred suddenly, 1 day(s) ago, and became persistent. Associated signs and symptoms: Pertinent positives: sore throat. Severity of symptoms: At their worst the symptoms were moderate. It is unknown whether or not the patient has had similar symptoms in the past. The patient has not recently seen a physician. 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 - Social history:: Smoking status: Patient reports the use of cigarette tobacco products, smokes one pack cigarettes per day. ROS: 10:11 Constitutional: Negative for fever, chills, and weight loss, Eyes: Negative for injury, snw pain, redness, and discharge, ENT: Negative for injury and discharge, congestion, pain Neck: Negative for injury, pain, and swelling, Cardiovascular: Negative for chest pain, palpitations, and edema, Respiratory: Negative for shortness of breath, cough, wheezing, and pleuritic chest pain, Abdomen/GI: Negative for abdominal pain, nausea, vomiting, diarrhea, and constipation, Back: Negative for injury and pain, : Negative for injury, bleeding, discharge, and swelling, MS/Extremity: Negative for injury and deformity, Skin: Negative for injury, rash, and discoloration. 10:11 Neuro: Positive for headache. Exam: 10:10 Head/Face: Normocephalic, atraumatic. Eyes: Pupils equal round and reactive to light, snw extra-ocular motions intact. Lids and lashes normal. Conjunctiva and sclera are non-icteric and not injected. Cornea within normal limits. Periorbital areas with no swelling, redness, or edema. Neck: Trachea midline, no thyromegaly or masses palpated, and no cervical lymphadenopathy. Supple, full range of motion without nuchal rigidity, or vertebral point tenderness. No Meningismus. 10:10 Chest/axilla: Normal chest wall appearance and motion. Nontender with no deformity. No lesions are appreciated. Cardiovascular: Regular rate and rhythm with a normal S1 and S2. No gallops, murmurs, or rubs. Normal PMI, no JVD. No pulse deficits. Respiratory: Lungs have equal breath sounds bilaterally, clear to auscultation and percussion. No rales, rhonchi or wheezes noted. No increased work of breathing, no retractions or nasal flaring. Abdomen/GI: Soft, non-tender, with normal bowel sounds. No distension or tympany. No guarding or rebound. No evidence of tenderness throughout. Back: No spinal tenderness. No costovertebral tenderness. Full range of motion. Skin: Warm, dry with normal turgor. Normal color with no rashes, no lesions, and no evidence of cellulitis. MS/ Extremity: Pulses equal, no cyanosis. Neurovascular intact. Full, normal range of motion. Neuro: Awake and alert, GCS 15, oriented to person, place, time, and situation. Cranial nerves II-XII grossly intact. Motor strength 5/5 in all extremities. Sensory grossly intact. Cerebellar exam normal. Normal gait. Psych: Awake, alert, with orientation to person, place and time. Behavior, mood, and affect are within normal limits. 10:10 Constitutional: The patient appears alert, awake, anxious, restless. 10:10 ENT: TM's: are normal, Nose: is normal, Mouth: is normal, Posterior pharynx: is normal, Voice: is normal. Vital Signs: 09:19 BP 135 / 89; Pulse 85; Resp 18; Temp 97.8; Pulse Ox 100% ; Weight 79.38 kg; Height 5 ap3 ft. 3 in. (160.02 cm); 09:19 Body Mass Index 31.00 (79.38 kg, 160.02 cm) ap3 MDM: 09:04 Patient medically screened. snw 10:18 Data reviewed: vital signs, nurses notes. Data interpreted: Pulse oximetry: on room air snw is 100 %. Interpretation: normal. Counseling: I had a detailed discussion with the patient and/or guardian regarding: the historical points, exam findings, and any diagnostic results supporting the discharge/admit diagnosis, lab results, the need for outpatient follow up, to return to the emergency department if symptoms worsen or persist or if there are any questions or concerns that arise at home. Special discussion: Based on the history and exam findings, there is no indication for further emergent testing or inpatient evaluation. I discussed with the patient/guardian the need to see the primary care provider for further evaluation of the symptoms. 03/30 09:26 Order name: Flu; Complete Time: 10:16 snw Administered Medications: No medications were administered Disposition: 13:28 Co-signature as Attending Physician, Avelino Solorio MD. rn Disposition Summary: 03/30/22 10:17 Discharge Ordered Location: Home snw Condition: Stable snw Diagnosis - Influenza due to other identified influenza virus with gastrointestinal snw manifestations Followup: snw - With: Emergency Department - When: As needed - Reason: Worsening of condition Followup: snw - With: Private Physician - When: 5 - 6 days - Reason: Recheck today's complaints, Continuance of care, Re-evaluation by your physician Discharge Instructions: - Discharge Summary Sheet snw - Influenza, Adult snw Forms: - Medication Reconciliation Form snw - Work release form snw - Thank You Letter snw - Antibiotic Education snw - Prescription Opioid Use snw Prescriptions: - promethazine 25 mg Oral Tablet - take 1 tablet by ORAL route every 6 hours As needed; 20 tablet; Refills: 0, snw Product Selection Permitted Signatures: Dispatcher [employer] EDViktoria Griffin FNP-C CTE TEACHER-Csnw Avelino Solorio MD MD rn Prokisch, Amanda, RN RN ap3
--- NOTE | 2022-03-30 10:17 | ER ---
Nurse's Notes [facility] Name: Nancy Malhotra Age: 36 yrs Sex: Female : 1985 Arrival Date: 03/30/2022 Time: 08:54 Bed 9 Private MD: Diagnosis: Influenza due to other identified influenza virus with gastrointestinal manifestations Presentation: 03/30 09:19 Chief complaint: Patient states: she started having headache, sore throat, congestion ap3 yesterday. patient states her employer tested her for COVID this morning and she was negative. Coronavirus screen: Client presents with at least one sign or symptom that may indicate coronavirus-19. Ebola Screen: No symptoms or risks identified at this time. Initial Sepsis Screen: Does the patient meet any 2 criteria? No. Patient's initial sepsis screen is negative. Does the patient have a suspected source of infection? No. Patient's initial sepsis screen is negative. Risk Assessment: Do you want to hurt yourself or someone else? Patient reports no desire to harm self or others. Onset of symptoms was March 29, 2022. 09:19 Method Of Arrival: Ambulatory ap3 09:19 Acuity: MORIS 4 ap3 Triage Assessment: 09:21 Headache History: The patient has had previous headaches and this one is similar to ap3 previous episodes. General: Appears ill, Behavior is calm, cooperative, appropriate for age. Pain: Complains of pain in throat Pain currently is 3 out of 10 on a pain scale. Pain began gradually, 1 day ago. Also complains of cough congestion. EENT: Reports pain when swallowing. Neuro: Level of Consciousness is awake, alert, obeys commands, Oriented to person, place, time, situation. 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 - Social history:: Smoking status: Patient reports the use of cigarette tobacco products, smokes one pack cigarettes per day. Screenin:22 Abuse screen: Denies threats or abuse. Nutritional screening: No deficits noted. ap3 Tuberculosis screening: No symptoms or risk factors identified. 09:22 Fall Risk None identified. ap3 Vital Signs: 09:19 BP 135 / 89; Pulse 85; Resp 18; Temp 97.8; Pulse Ox 100% ; Weight 79.38 kg; Height 5 ap3 ft. 3 in. (160.02 cm); 09:19 Body Mass Index 31.00 (79.38 kg, 160.02 cm) ap3 ED Course: 08:54 Patient arrived in ED. rg4 08:56 Viktoria Encarnacion FNP-C [facility]. snw 08:56 Avelino Solorio MD is Attending Physician. snw 09:21 Triage completed. ap3 09:22 Patient has correct armband on for positive identification. Bed in low position. Call ap3 light in reach. Pulse ox on. NIBP on. 09:22 Arm band placed on right wrist. ap3 Administered Medications: No medications were administered Outcome: 10:17 Discharge ordered by . snw 10:45 Patient left the ED. ap3 Signatures: Viktoria Encarnacion FNP-C FNP-Maribell Espinoza rg4 Rosalee Martinez, RN RN ap3
[2022-03-30 11:54] VITALS: BP 135/89; TEMP 97.8; O2SAT 100
== END 2022-03-30 10:45 | disposition home or self-care (01) ==
LOC: ER 08:50
DX: J10.2 Influenza due to other identified influenza virus with gastrointestinal manifestations (principal); Z20.822 Contact with and (suspected) exposure to COVID-19; F17.210 Nicotine dependence, cigarettes, uncomplicated
CPT/HCPCS: 87804; 99282

== ENCOUNTER 2022-12-15 19:22 | Emergency (ER) | payer SELFPAY ==
--- OUTSIDE RECORDS SUMMARY | 2022-12-15 19:25 | XMS REPORT | Continuity of Care Document ---
:1985 Author Organization [facility] t Address [address] [place] [address] [place] [id number] Care Team Providers Name Role Phone Tessa Weinstein MD Attending Clinician TESSA WEINSTEIN Attending Clinician Unavailable Doctor Unassigned, [place] Attending Clinician Unavailable Lelo Helms PA-C Attending [...] (BMI 7-07 ity of 30-39.9) 30-39.9) 00:00: [place] 00 [facility] No known No known Disease Unive rs active active ity of problems problems [facility] Allergies, Adverse Reactions, Alerts Allergy Allergy Status Severity Reaction(s) Onset Inactive Treating Comm ents Source Name Type Date Date Clinician NO KNOWN Drug Active Univers ALLERGIE Class ity of S [facility] Social History Social Habit Start Date Stop Date Quantity Comments Source Exposure to Not sure [facility] SARS-CoV-2 (event) [facility] Tobacco use and 2020-11-24 2020-11-24 Never used Universit y of exposure 00:00:00 00:00:00 [facility] Alcohol intake 2020-11-24 2020-11-24 Lifetime University of 00:00:00 00:00:00 non-drinker [facility] (finding) Branch Cigarettes smoked 2020-11-24 2020-11-24 Univers ity of current (pack per 00:00:00 00:00:00 ) - Reported Branch Tobacco Comment 2020-10-13 2020-10-13 1 PPD Universit y of 00:00:00 00:00:00 [facility] Sex Ass[birth year] At [birth year] Universit y of 00:00:00 00:00:00 [facility] Smoking Status Start Date Stop Date Source Unknown if ever smoked General acute hospital Current every day smoker 2020-11-24 00:00:00 Uni versity of [facility] Medications Ordered Filled Start Stop Current Ordering [...] yrs) 52 mg IUD levonorgest 2020- No [id number] 1{devic Univers reL 7 07-07 e} ity of (MIRENA) 17:45: 16:38 [place] IUD 1 00 :00 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 Branch levonorgest 2020- No [id number] 1{devic 1 Device, Univers reL 7 07-07 e} Intrauteri ity of (MIRENA) 17:45: 16:38 ne, ONCE, Alex as IUD 1 00 :00 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, 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 Branch at 1245, Routine levonorgest 2020- No [id number] 1{devic Univers reL 707 07-07 e} ity of (MIRENA) 17:45: 16:38 [place] IUD 1 00 :00 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 Branch levonorgest 2020- No [id number] 1{devic 1 Device, Univers reL 7 07-07 e} Intrauteri ity of (MIRENA) 17:45: 16:38 ne, ONCE, Alex as IUD 1 00 :00 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, 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 Branch at 1245, Routine miSOPROStoL Yes [id number] Take one Univers 200 mcg 6-23 tablet ity of tablet 00:00: night [place] 00 before Medical procedure, Branch then take one tablet morning of procedure miSOPROStoL 2020-0 Yes [id number] Take one Univers 200 mcg 6-23 tablet ity of tablet 00:00: night [place] 00 before Medical procedure, Branch then take one tablet morning of procedure miSOPROStoL 2020-0 Yes [id number] Take one Univers 200 mcg 6-23 tablet ity of tablet 00:00: night [place] 00 before Medical procedure, Branch then take one tablet morning of procedure miSOPROStoL 2020-0 2021- No [id number] Take one Univers 200 mcg 6-23 07-07 tablet ity of tablet 00:00: 00:00 night [place] 00 :00 before Medical procedure, Branch then take one tablet morning of procedure miSOPROStoL 2020-0 2020- No [id number] Take one Univers 200 mcg 6-23 07-07 tablet ity of tablet 00:00: 00:00 night [place] 00 :00 before Medical procedure, Branch then take one tablet morning of procedure ferrous 2020-0 Yes Take by Univers sulfate 6-08 mouth. ity of (IRON ORAL) 19:47: [address] ferrous 2020-0 Yes Take by Univers sulfate 6-08 mouth. ity of (IRON ORAL) 19:47: [address] ferrous 2020-0 Yes Take by Univers sulfate 6-08 mouth. ity of (IRON ORAL) 19:47: [address] ferrous 2020-0 Yes Take by Univers sulfate 6-08 mouth. ity of (IRON ORAL) 19:47: [address] ferrous 2020-0 Yes Take by Univers sulfate 6-08 mouth. ity of (IRON ORAL) 19:47: [address] ferrous 2020-0 Yes Take by Univers sulfate 6-08 mouth. ity of (IRON ORAL) 19:47: [address] ferrous 2020-0 Yes Take by Univers sulfate 6-08 mouth. ity of (IRON ORAL) 19:47: [address] ferrous 2020-0 Yes Take by Univers sulfate 6-08 mouth. ity of (IRON ORAL) 19:47: [address] ferrous 2020-0 Yes Take by Univers sulfate 6-08 mouth. ity of (IRON ORAL) 19:47: [place] 48 Medical Branch ferrous 2021-0 Yes Take by Univers sulfate 6-08 mouth. ity of (IRON ORAL) 19:47: [place] [address] Medical Branch ferrous 2021-0 Yes Take by Univers sulfate 6-08 mouth. ity of (IRON ORAL) 19:47: [place] [address] Medical Branch ferrous 2021-0 Yes Take by Univers sulfate 6-08 mouth. ity of (IRON ORAL) 19:47: [place] [address] Medical Branch metFORMIN 202-0 Yes [id number] 500mg Take 1 U nivers 500 mg 6-08 tablet by ity of tablet 00:00: mouth [place] (two) Medical times Branch daily with meals. metFORMIN 2020-0 Yes [id number] 500mg Take 1 U nivers 500 mg 6-08 tablet by ity of tablet 00:00: mouth [place] (two) Medical times Branch daily with meals. metFORMIN 2020-0 Yes [id number] 500mg Take 1 U nivers 500 mg 6-08 tablet by ity of tablet 00:00: mouth [place] (two) Medical times Branch daily with meals. metFORMIN 2020-0 Yes [id number] 500mg Take 1 U nivers 500 mg 6-08 tablet by ity of tablet 00:00: mouth [place] (two) Medical times Branch daily with meals. metFORMIN 2020-0 Yes [id number] 500mg Take 1 U nivers 500 mg 6-08 tablet by ity of tablet 00:00: mouth [place] (two) Medical times Branch daily with meals. metFORMIN 2020-0 Yes [id number] 500mg Take 1 U nivers 500 mg 6-08 tablet by ity of tablet 00:00: mouth [place] (two) Medical times Branch daily with meals. metFORMIN 2020-0 Yes [id number] 500mg Take 1 U nivers 500 mg 6-08 tablet by ity of tablet 00:00: mouth [place] (two) Medical times Branch daily with meals. metFORMIN 202-0 Yes [id number] 500mg Take 1 U nivers 500 mg 6-08 tablet by ity of tablet 00:00: mouth [place] (two) Medical times Branch daily with meals. metFORMIN 1-0 Yes [id number] 500mg Take 1 U nivers 500 mg 6-08 tablet by ity of tablet 00:00: mouth [place] (two) Medical times Branch daily with meals. metFORMIN Yes [id number] 500mg Take 1 U nivers 500 mg 6-08 tablet by ity of tablet 00:00: mouth 2 [place] 00 (two) Medical times Branch daily with meals. metFORMIN 0 Yes [id number] 500mg Take 1 U nivers 500 mg 6-08 tablet by ity of tablet 00:00: mouth 2 [place] 00 (two) Medical times Branch daily with meals. metFORMIN 0 Yes [id number] 500mg Take 1 U nivers 500 mg 6-08 tablet by ity of tablet 00:00: mouth 2 [place] 00 (two) Medical times Branch daily with meals. Vital Signs Vital Name Observation Time Observation Value Comments Source Systolic blood 2020-11-24 16:30:00 123 mm[Hg] Univer sity of [facility] Diastolic blood 2020-11-24 16:30:00 79 mm[Hg] [facility] Heart rate 2020-11-24 16:30:00 79 /min [facility] acute hospital Body temperature 2020-11-24 16:30:00 36.83 Mariela [facility] Respiratory rate 2020-11-24 16:30:00 16 /min [facility] Body height 2020-11-24 16:30:00 160 cm General acute hospital Body weight 2020-11-24 16:30:00 77.474 kg General acute hospital BMI 2020-11-24 16:30:00 30.26 kg/m2 General acute hospital Systolic blood 2020-10-27 15:18:00 127 mm[Hg] Univer sity of [facility] Diastolic blood 2020-10-27 15:18:00 79 mm[Hg] [facility]ive [facility] of [facility] Heart rate 2020-10-27 15:18:00 63 /min General acute hospital Body temperature 2020-10-27 15:18:00 36.72 Mariela [facility] Respiratory rate 2020-10-27 15:18:00 18 /min [facility] Body height 2020-10-27 15:18:00 160 cm General acute hospital Body weight 2020-10-27 15:18:00 77.111 kg Universi ty of [place] [facility] BMI 2020-10-27 15:18:00 30.11 kg/m2 Universi ty of [place] [facility] Systolic blood 2020-10-13 15:02:00 128 mm[Hg] Univer sity of pressure [place] [facility] Diastolic blood 2020-10-13 15:02:00 80 mm[Hg] Unive rsity of pressure [facility] Branch Heart rate 2020-10-13 15:02:00 85 /min Universi ty of [facility] Branch Body temperature 2020-10-13 15:02:00 37.06 Mariela Univ ersity of [facility] Branch Respiratory rate 2020-10-13 15:02:00 18 /min Univ ersity of [facility] Branch Body height 2020-10-13 15:02:00 160 cm Universi ty of [place] [facility] [place] Body weight 2020-10-13 15:02:00 76.658 kg Universi ty of [facility] Branch BMI 2020-10-13 15:02:00 29.94 kg/m2 Universi ty of [place] [facility] Systolic blood 2020-09-28 19:46:00 111 mm[Hg] Univer sity of pressure [facility] Branch Diastolic blood 2020-09-28 19:46:00 79 mm[Hg] Unive rsity of pressure [facility] Branch Heart rate 2020-09-28 19:46:00 77 /min Universi ty of [place] [facility] [place] Body temperature 2020-09-28 19:46:00 36.89 Mariela Univ ersity of [facility] Branch Respiratory rate 2020-09-28 19:46:00 18 /min Univ ersity of [place] [facility] Body height 2020-09-28 19:46:00 160 cm Universi ty of [place] [facility] Body weight 2020-09-28 19:46:00 76.658 kg Universi ty [facility] [place] [facility] BMI 2020-09-28 19:46:00 29.94 kg/m2 Universi ty [facility] [place] [facility] Procedures Procedure Date / Time Performed Performing Clinician [facility] e SALES FLOOR TEAM [facility] 2020-10-27 05:01:00 Doctor Unassigned, No Univer [facility] ULTRASOUND Name [facility] POCT TEST 2020-10-27 00:00:00 Tessa Weinstein Universi ty of [facility] ASSIGNMENT OF BENEFITS 2020-09-28 19:12:27 Doctor Poojassigned, No [facility] POCT TEST 2020-09-28 00:00:00 Lelo Helms ty of [facility] Encounters Start End Encounter Admission Attending Care Care Encounter Source Date/Time Date/Time Type Type Clinicians Facility Department ID 2020-11-24 2020-11-24 Office Tessa Weinstein [facility] [id number] Univers 11:00:44 11:44:47 Visit Harley Yao [id number] i ty [id number] [phone] N[place] dical [place]al [address] [place] [address] 2020-11-24 2020-11-24 Outpatient TESSA AVELAR [facility] [id number] Univers 11:00:00 11:00:00 ity of [facility] 2020-10-27 2020-10-27 Office Tessa Weinstein [facility] [id number] Univers 10:05:10 11:26:32 Visit Harley Yao [id number] i [id number] [phone] Nv dical nal [address] [place] [address] 2020-10-27 2020-10-27 Outpatient R TESSA WEINSTEIN [facility] [id number] Univers 10:00:00 10:00:00 ity of [facility] 2020-10-27 2020-10-27 Orders Doctor SETHI [id number] Univers 00:00:00 00:00:00 Only Unassigned, MARIBELL [id number] [facility] [id number] Alex as [phone] [address] 2020-10-13 2020-10-13 Office Analia DEASHLEY [id number] Univers 09:33:14 11:00:48 Visit Lelo Yao [id number] i ty [id number] [phone] Nv dical nal [address] [place] [address] 2020-10-13 2020-10-13 Outpatient R ANALIA [facility] [id number] Univers 09:45:00 09:45:00 LELO elena [facility] 2020-10-07 2020-10-[address] [facility] [id number] [facility] 00:00:00 00:00:00 Lelo Yao [id number] i ty [id number] [phone] [facility] 134 [facility] 2020-09-28 2020-09-28 Environmental Safety Specialist 2, Adc Lab [facility] [id number] Univers 15:33:19 15:48:19 Visit eLlo Helms [id number] ity [id number] [phone] [facility] 353 [facility] 2020-09-28 2020-09-[address] [facility] [id number] [facility] 14:17:04 15:22:17 Visit Lelo Yao [id number] i ty [id number] [phone] [address] 2020-09-28 2020-09-28 Outpatient R ANALIA [facility] [id number] Univers 14:30:00 14:30:00 LELO parker [facility] 2020-09-28 2020-09-28 Orders Doctor JOSSIE [id number] [place] [address] 00:00:00 00:00:00 Only Unassigned, MARIBELL [id number] ity of [place] [facility] [id number] Alex as [phone] [address] Results Test Description Test Time Test Comments Results Result Comments Source POCT TEST 2020-10-27 15:56:00 Test Item Value Reference Range Interpretation Comme nts POCT PREG (test code = 1605) Negative On board controls acceptable with C Line (test code = 3574) Yes POCT PREG LOT # (test code = 3575) POCT PREG TEST DATE (test code = 3576) [id number] 15:56:00 Test Item Value Reference Range Interpretation Comments POCT PREG (test code = 1605) Negative On board controls acceptable with C Yes Line (test code = 3574) POCT PREG LOT # (test code = 3575) POCT PREG TEST DATE (test code = 3576) [facility] [id number] 20:04:00 Test Item Value Reference Range Interpretation Comments POCT PREG (test code = 1605) Negative On board controls acceptable with C Yes Line (test code = 3574) POCT PREG LOT # (test code = 3575) POCT PREG TEST DATE (test code = 3576) [facility] [id number] 20:04:00 Test Item Value Reference Range Interpretation Comments POCT PREG (test code = 1605) Negative On board controls acceptable with C Yes Line (test code = 3574) POCT PREG LOT # (test code = 3575) POCT PREG TEST DATE (test code = 3576) [facility]
--- NOTE | 2022-12-15 21:01 | RAD REPORT ---
EXAM DESCRIPTION: CT - Abdomen Pelvis W Contrast - 12/15/2022 8:39 pm CLINICAL HISTORY: Abdominal pain COMPARISON: none. TECHNIQUE: Computed axial tomography of the abdomen pelvis was obtained. 100 cc Isovue-300 was admin istered intravenously. Oral contrast was not requested which limits evaluation of bowel and appendix All CT scans are performed using dose optimization technique as appropriate and may include automated exposure control or mA/KV adjustment according to patient size. FINDINGS: Small hepatic cyst. The spleen, pancreas and adrenals unremarkable. Bilateral renal cysts. 10 millimeter calculus right renal pelvis. Minimal right hydronephrosis. Addit ional smaller calculus lower pole right kidney. Normal appendix. No evidence of diverticulitis. Small ovarian cysts without significant free-fluid. No follow-up recommended. IUD in place. Tubal ligation clips present IMPRESSION: 10 millimeter calculus right renal pelvis with minimal right hydronephrosis
[2022-12-15 21:55] LABS: Specific Gravity > 1.030 (1.005-1.030)
[2022-12-15] MEDS ORDERED: KETOROLAC 30 MG/ML INJ ONE (21:56)
[2022-12-15] MEDS ORDERED: NA CHLORIDE 0.9% 1,000 ML ONE (21:57)
[2022-12-15] MEDS ORDERED: ONDANSETRON 4 MG/2 ML VIAL ONE (21:57)
[2022-12-15 21:59] LABS: Absolute Lymphocytes (CBC) 2.4 K/uL (0.7-4.9); Hematocrit 38.3 % (36.0-45.0); Lymphocytes % 29.1 % (15.3-44.8); MPV 8.4 fL (7.6-11.3); Platelets 205 thou/uL (152-406)
[2022-12-15 21:59] LABS: Calcium Oxalate Crystals- Ur Few /HPF (None Seen); Renal Epithelial <5 /HPF (None Seen); Specific Gravity > 1.030 (1.005-1.030); Urine Bacteria None Seen /HPF (<20); Urine Bilirubin NEGATIVE (Negative); Urine Blood Trace (Negative); Urine Clarity Extremely Turbid (Clear); Urine Color Yellow (Yellow); Urine Glucose NEGATIVE (Negative); Urine Mucus 4+ /HPF (None Seen); Urine Protein 1+ (Negative); Urine Urobilinogen 1+ (Normal); Urine pH 5.5 (5.0-7.0)
[2022-12-15 22:03] LABS: Albumin 3.4 g/dL (3.4-5.0); Bilirubin Total 0.2 mg/dL (0.2-1.0); Potassium 3.6 mEq/L (3.5-5.1); Protein, Total 6.7 g/dL (6.4-8.2)
--- NOTE | 2022-12-15 22:17 | ER ---
Nurse's Notes [facility] Name: Nancy Malhotra Age: 37 yrs Sex: Female : 1985 Arrival Date: 12/15/2022 Time: 19:22 Bed 8 Private MD: Diagnosis: Unspecified hydronephrosis;Calculus of kidney;Lower abdominal pain, unspecified Presentation: 12/15 19:31 Chief complaint: Patient states: right lower quadrant pain off and on x 1 week all day kl today. Coronavirus screen: Vaccine status: Patient reports receiving the 2nd dose of the covid vaccine. Ebola Screen: Patient negative for fever greater than or equal to 101.5 degrees Fahrenheit, and additional compatible Ebola Virus Disease symptoms. Initial Sepsis Screen: Does the patient meet any 2 criteria? No. Patient's initial sepsis screen is negative. Does the patient have a suspected source of infection? No. Patient's initial sepsis screen is negative. Risk Assessment: Do you want to hurt yourself or someone else? Patient reports no desire to harm self or others. 19:31 Method Of Arrival: Ambulatory 19:31 Acuity: MORIS 3 Triage Assessment: 19:34 General: Appears in no apparent distress. Behavior is calm, cooperative. Pain: kl Complains of pain in right lower quadrant Pain radiates to posterior aspect of right lateral abdomen and anterior aspect of right lateral abdomen Pain currently is 4 out of 10 on a pain scale. at worst was 9 out of 10 on a pain scale. GI: Reports lower abdominal pain, nausea. Historical: - Allergies: 19:33 No Known Allergies; kl - Home Meds: 19:33 None [Active]; kl - PMHx: 19:35 PCOS; kl - PSHx: 19:33 section; Ligation of fallopian tube; kl - Immunization history:: Adult Immunizations not immunized. - Social history:: Smoking status: Patient reports the use of cigarette tobacco products, smokes one pack cigarettes per day. Screenin:29 [facility] ED Fall Risk Assessment (Adult) History of falling in the last 3 months, kl including since admission No falls in past 3 months (0 pts) Confusion or Disorientation No (0 pts) Intoxicated or Sedated No (0 pts) Impaired Gait No (0 pts) Mobility Assist Device Used No (0 pt) Altered Elimination No (0 pt) Score/Fall Risk Level 0 - 2 = Low Risk Oriented to surroundings, Maintained a safe environment. Abuse screen: Denies threats or abuse. Nutritional screening: No deficits noted. Tuberculosis screening: No symptoms or risk factors identified. Assessment: 22:29 Reassessment: Patient states feeling better. Patient states symptoms have improved. Vital Signs: 19:31 BP 134 / 89; Pulse 76; Resp 18; Temp 98(TE); Pulse Ox 100% on R/A; Weight 79.38 kg (R); kl Height 5 ft. 3 in. ; Pain 4/10; 22:29 BP 133 / 89; Pulse 71; Resp 18; Pulse Ox 100% on R/A; kl 19:31 Body Mass Index 31.00 (79.38 kg, 160.02 cm) kl 19:31 Pain Scale: Adult ED Course: 19:23 Patient arrived in ED. [email or web address] 19:29 Sheri Fried FNP-C [facility] kb 19:29 Avelino Solorio MD is Attending Physician. kb 19:33 Triage completed. kl 20:41 CT Abd/Pelvis - IV Contrast Only In Process Unspecified. EDMS 21:27 CBC with Diff Sent. kl 21:27 CMP Sent. kl 21:27 Lipase Sent. kl 21:27 Test, Urine Sent. kl 21:28 Urinalysis w/ reflexes Sent. kl 21:36 CBC with Diff Sent. kl 21:36 CMP Sent. kl 21:36 Lipase Sent. kl 21:36 Test, Urine Sent. kl 21:36 Urinalysis w/ reflexes Sent. kl 21:37 Raleigh Samano, SEKOU is Primary Nurse. rv 22:17 Ed Ly MD is Referral Physician. kb 22:29 Patient has correct armband on for positive identification. kl 22:30 No provider procedures requiring assistance completed. IV discontinued, intact, kl bleeding controlled, No redness/swelling at site. Pressure dressing applied. Administered Medications: 21:52 Drug: NS 0.9% IV 1000 ml Route: IV; Rate: 1 bolus; Site: right antecubital; rv 21:52 Drug: TORadol - Ketorolac IVP 15 mg Route: IVP; Site: right antecubital; rv 21:52 Drug: Ondansetron IVP 4 mg Route: IVP; Site: right antecubital; rv Outcome: 22:16 Discharge ordered by . ladonna 22:30 Discharged to home ambulatory. devonte 22:30 Condition: improved 22:30 Discharge instructions given to patient, Instructed on discharge instructions, follow up and referral plans. medication usage, Demonstrated understanding of instructions, follow-up care, medications, Prescriptions given X 2. 22:30 Patient left the ED. devonte Signatures: Dispatcher [employer] EDWA Sheri Fried, TORRES BARRIOS-Hallie Ennis RN RN Raleigh Palacios RN RN Cristine Sanchez [email or web address] Corrections: (The following items were deleted from the chart) 19:35 19:33 PMHx: None; devonte whitney
--- NOTE | 2022-12-15 22:17 | EDPHYS ---
Physician Documentation [facility] Name: Nancy Malhotra Age: 37 yrs Sex: Female : 1985 Arrival Date: 12/15/2022 Time: 19:22 Bed 8 Private MD: ED Physician Avelino Solorio HPI: 12/15 23:01 This 37 yrs old Female presents to ER via Ambulatory with complaints of Abdominal Pain. kb 23:01 The patient presents with abdominal pain right lower quadrant. Onset: The kb symptoms/episode began/occurred 1 week(s) ago, and became persistent. The symptoms radiate to the right flank. Associated signs and symptoms: Pertinent positives: nausea, Pertinent negatives: constipation, diarrhea, fever, vomiting. The symptoms are described as constant. Modifying factors: The symptoms are alleviated by nothing, the symptoms are aggravated by nothing. Severity of pain: At its worst the pain was moderate in the emergency department the pain is unchanged. The patient has not experienced similar symptoms in the past. The patient has not recently seen a physician. Pt reports intermittent RLQ pain for one week that became more constant today. . Historical: - Allergies: 19:33 No Known Allergies; kl - Home Meds: 19:33 None [Active]; kl - PMHx: 19:35 PCOS; kl - PSHx: 19:33 section; Ligation of fallopian tube; kl - Immunization history:: Adult Immunizations not immunized. - Social history:: Smoking status: Patient reports the use of cigarette tobacco products, smokes one pack cigarettes per day. ROS: 22:59 Constitutional: Negative for fever, chills, and weight loss. kb 22:59 Abdomen/GI: Positive for abdominal pain, nausea. 22:59 Back: Positive for flank pain. 22:59 All other systems are negative. Exam: 22:59 Constitutional: This is a well developed, well nourished patient who is awake, alert, kb and in no acute distress. Head/Face: Normocephalic, atraumatic. ENT: Moist Mucous membranes Cardiovascular: Regular rate and rhythm with a normal S1 and S2. No gallops, murmurs, or rubs. No pulse deficits. Respiratory: Respirations even and unlabored. No increased work of breathing. Talking in full sentences Skin: Warm, dry with normal turgor. Normal color. MS/ Extremity: Pulses equal, no cyanosis. Neurovascular intact. Full, normal range of motion. Neuro: Awake and alert, GCS 15, oriented to person, place, time, and situation. Moves all extremities. Normal gait. 22:59 Abdomen/GI: Inspection: abdomen appears normal, Bowel sounds: normal, Palpation: soft, in all quadrants, mild abdominal tenderness, in the right lower quadrant. Vital Signs: 19:31 BP 134 / 89; Pulse 76; Resp 18; Temp 98(TE); Pulse Ox 100% on R/A; Weight 79.38 kg (R); kl Height 5 ft. 3 in. ; Pain 4/10; 22:29 BP 133 / 89; Pulse 71; Resp 18; Pulse Ox 100% on R/A; kl 19:31 Body Mass Index 31.00 (79.38 kg, 160.02 cm) kl 19:31 Pain Scale: Adult kl MDM: 19:29 Patient medically screened. kb 23:00 Differential diagnosis: appendicitis, non-specific abd pain, Ureterolithiasis, urinary kb tract infection. Data reviewed: vital signs, nurses notes. Management of patient was discussed with the following: Dr Paz who recommends follow up with urology outpatient. Counseling: I had a detailed discussion with the patient and/or guardian regarding the historical points, exam findings, and any diagnostic results supporting the discharge/admit diagnosis, lab results, radiology results, the need for outpatient follow up, a urologist, to return to the emergency department if symptoms worsen or persist or if there are any questions or concerns that arise at home. 12/15 19:38 Order name: CBC with Diff; Complete Time: 22:04 kb 12/15 19:38 Order name: CMP; Complete Time: 22:04 kb 12/15 19:38 Order name: Lipase; Complete Time: 22:04 kb 12/15 19:38 Order name: Test, Urine; Complete Time: 22:01 kb 12/15 19:38 Order name: Urinalysis w/ reflexes; Complete Time: 22:01 kb 12/15 19:38 Order name: CT Abd/Pelvis - IV Contrast Only; Complete Time: 21:03 kb 12/15 19:38 Order name: IV Saline Lock; Complete Time: 21:36 kb 12/15 19:38 Order name: Labs collected and sent; Complete Time: 21:36 kb Administered Medications: 21:52 Drug: NS 0.9% IV 1000 ml Route: IV; Rate: 1 bolus; Site: right antecubital; rv 21:52 Drug: TORadol - Ketorolac IVP 15 mg Route: IVP; Site: right antecubital; rv 21:52 Drug: Ondansetron IVP 4 mg Route: IVP; Site: right antecubital; rv Disposition Summary: 12/15/22 22:16 Discharge Ordered Location: Home kb Condition: Stable kb Diagnosis - Unspecified hydronephrosis kb - Calculus of kidney kb - Lower abdominal pain, unspecified kb Followup: kb - With: Emergency Department - When: As needed - Reason: Worsening of condition Followup: kb - With: Private Physician - When: 2 - 3 days - Reason: Recheck today's complaints, Continuance of care, Re-evaluation by your physician Followup: kb - With: Ed Ly MD - When: 2 - 3 days - Reason: Recheck today's complaints, Re-evaluation by your physician Discharge Instructions: - Discharge Summary Sheet kb - Kidney Stones, [id number] kb - Abdominal Pain, Adult, [id number] kb Forms: - Medication Reconciliation Form kb - Thank You Letter kb - Antibiotic Education kb - Prescription Opioid Use kb - Patient Portal Instructions kb - Leadership Thank You Letter kb Prescriptions: - Zofran 4 mg Oral Tablet - take 1 tablet by ORAL route every 6 hours As needed; 12 tablet; Refills: 0, kb Product Selection Permitted - Diclofenac Sodium 75 mg Oral tablet,delayed release (DR/EC) - take 1 tablet by ORAL route 2 times per day As needed; 30 tablet; Refills: 0, kb Product Selection Permitted Signatures: Dispatcher [employer] Sheri Banda, SOLE INKER-C SOLE INKER-Hallie Ennis, RN RN Raleigh Palacios RN RN rv Corrections: (The following items were deleted from the chart) 19:35 19:33 PMHx: None; devonte whitney
[2022-12-15 23:33] VITALS: TEMP 98; O2SAT 100
[2022-12-15 23:34] VITALS: BP 133/89
== END 2022-12-15 22:30 | disposition home or self-care (01) ==
LOC: ER 19:22
DX: N20.0 Calculus of kidney (principal); N13.30 Unspecified hydronephrosis
CPT/HCPCS: 36415; 74177; 80053; 81001; 81025; 82565; 83690; 85025; 96374; 96375; 99284; J2405; J7030; Q9967